=== PATIENT | male | born 1980 | race Caucasian/White ===

== ENCOUNTER 2017-07-25 04:27 | Emergency (ER) | payer MEDICAID, OTHER ==
[~2017-07-25] VITALS: Ht 172.7 cm; Wt 60.0 kg
[2017-07-25] MEDS ORDERED: PROPOFOL 200 MG INJ IV ONE (05:00)
[2017-07-25] MEDS ORDERED: IBUP800T25 PO (05:03)
--- NOTE | 2017-07-25 05:05 | ERD ---
ER Documentation Chief Complaint Chief Complaint Dislocated shoulder HPI This is a 37-year-old male with a history of recurrent shoulder dislocation. The patient is a heroin addict and states that he sneezed hard and his shoulder popped out around 8 PM yesterday he said he tried to get it back in himself but no LOC. Patient says it comes out very easily and usually can put it back in but it did not work this time. There is some sharp pain in the right shoulder when he moves but her breasts ROS All systems reviewed and are negative except as per history of present illness. Medications Home Meds Active Scripts Ibuprofen* (Motrin*) 800 Mg Tab, 800 MG PO Q6H Y for PAIN AND OR ELEVATED TEMP, #30 TAB Prov:ALEXIS OWENS DO 07/25/17 Allergies Allergies: Coded Allergies: Penicillins (Verified Allergy, Unknown, 07/25/17) PMhx/Soc History of Surgery: No Anesthesia Reaction: No Hx Neurological Disorder: No Hx Respiratory Disorders: No Hx Cardiac Disorders: No Hx Psychiatric Problems: No Hx Miscellaneous Medical Probl: Yes (RECURRENT SHOULDER DISLOCATION) Hx Alcohol Use: No Hx Substance Use: Yes (HEROIN LAST USED 07/25/17 AM) Hx Tobacco Use: Yes Smoking Status: Current every day smoker FmHx Family History: No coronary disease Physical Exam Physical Exam Const: Well-developed, well-nourished Head: Atraumatic, normocephalic Eyes: Normal Conjunctiva, PERRLA, EOMI, normal sclera, no nystagmus ENT: Normal External Ears, Nose and Mouth, moist mucus membranes. Neck: Full range of motion. No meningismus, no lymphadenopathy. Resp: Clear to auscultation bilaterally, no wheezing, rhonchi, rales Cardio: Regular rate and rhythm, no murmurs, S1 S2 present Abd: Soft, non tender x 4, non distended. Normal bowel sounds, no guarding or rebound, no pulsitile abdominal masses or bruits Skin: No petechiae or rashes, no ecchymosis , no maculopapular rash Back: No midline or flank tenderness Ext: No cyanosis, or edema, FROM x 3, there is anterior fullness in the right shoulder with obvious dislocated shoulder, normal inspection, neurovascularly intact x 4 Neur: Awake and alert, STR 5/5 x 4, sensation intact x 4, no focal findings, cerebellum intact Psych: Normal Mood and Affect Results 24 hrs Current Medications Medications (Trade) Dose Ordered Sig/Maru Route PRN Reason Start Time Stop Time Status Last Admin Dose Admin Propofol (Diprivan) 100 mg ONCE ONCE IV 07/25/17 05:00 07/25/17 05:01 DC 07/25/17 05:02 Procedures/MDM X-ray Shoulder 3V Interpreted by me: Bones: Right shoulder Joints: Anterior dislocation of the glenohumeral joint Foreign body: None Procedural Sedation: Pre-assessment performed. See preceding complete history and physical for details. Time out performed. See sedation documentation for details. Medication(s): Propofol Complications: No hypoxic or apneic events Recovered without incident. Greater than 15 minutes of face to face time included in sedation and recovery. Shoulder Reduction by me: Anesthesia: Propofol Location: Right shoulder Technique: Traction countertraction Results: Confucianism of normal anatomic positioning Compl: Neurovascularly intact post procedure. Sling Assessment: Neurovascularly intact post sling placement with good fit. Patient shoulder reduction was extremely easy, with full range of motion without pain afterwards Departure Diagnosis: Primary Impression: Dislocation, shoulder, anterior Encounter type: initial encounter Laterality: right Qualified Code: S43.014A - Anterior dislocation of right shoulder, initial encounter Condition: Stable Patient Instructions: Dislocation, Other Joint Referrals: SATHYA MIRANDA MD, APOSTOLOS A. DO Jul 25, 2017 05:05
[2017-07-25 05:10] VITALS: Ht 172.7 cm; Wt 60.0 kg
[2017-07-25 05:23] VITALS: PULSE 86; TEMP 98.5
[2017-07-25 05:32] VITALS: BP 108/84; RESP 16
[2017-07-25] MEDS ORDERED: CEPH-443 PO (05:55)
== END 2017-07-25 06:03 | disposition home or self-care (01) ==
LOC: E/R 04:27
DX: S43.014A Anterior dislocation of right humerus, initial encounter (principal); F17.210 Nicotine dependence, cigarettes, uncomplicated; X50.9XXA Other and unspecified overexertion or strenuous movements or postures, initial encounter; Y92.9 Unspecified place or not applicable
CPT/HCPCS: 23650; Z7502; Z7610